=== PATIENT | female | born 1980 | race American Indian/Alaskan Native ===

== ENCOUNTER 2017-05-14 19:08 | Emergency (ER) | payer MEDICAID ==
[2017-05-15] MEDS ORDERED: TYLENOL PO ONE (00:25)
[2017-05-15 07:33] VITALS: BP 121/92
--- NOTE | 2017-05-15 08:28 | Emergency Department Report ---
ED General Adult HPI - General Chief complaint: Skin/Abscess/Foreign Body Stated complaint: TB SKIN TEST Time Seen by Provider: 05/15/17 07:30 Source: patient Mode of arrival: Ambulatory Limitations: No Limitations - History of Present Illness Initial comments: Patient is a 36-year-old female past medical history of TB as a child who presents with a positive PPD test on her left arm. Patient states that she got a PPD test on Wednesday after she left long-term. She was previously diagnosed with TB in the past and been successfully treated. Patient has had no new symptoms. She is complaining of left arm pain and is a 3 out of 10 nothing makes it better or worse. Patient denies any IV drug use or any history of HIV. Patient denies having any night sweats or any weight loss. Patient has had a dry cough going on but she states that her daughter has been sick. Patient has no nausea or vomiting. Severity scale (0 -10): 0 - Related Data Previous Rx's Medication Instructions Recorded Last Taken Type Acetaminophen/Codeine [Tylenol #3] 1 tab PO Q6H PRN #25 tab 12/07/14 Unknown Rx Ibuprofen [Motrin] 600 mg PO Q8H PRN #50 tablet 12/07/14 Unknown Rx Allergies Allergy/AdvReac Type Severity Reaction Status Date / Time No Known Allergies Allergy Verified 04/15/14 12:41 ED Review of Systems ROS: Stated complaint: TB SKIN TEST Other details as noted in HPI Constitutional: denies: chills, fever Eyes: denies: eye pain, eye discharge, vision change ENT: denies: ear pain, throat pain Respiratory: cough. denies: shortness of breath, wheezing Cardiovascular: denies: chest pain, palpitations Endocrine: no symptoms reported Gastrointestinal: denies: abdominal pain, nausea, diarrhea Genitourinary: denies: urgency, dysuria, discharge Musculoskeletal: denies: back pain, joint swelling, arthralgia Skin: rash. denies: lesions Neurological: denies: headache, weakness, paresthesias Psychiatric: denies: anxiety, depression Hematological/Lymphatic: denies: easy bleeding, easy bruising ED Past Medical Hx - Past Medical History Previous Medical History?: Yes Hx Hypertension: Yes Additional medical history: TB - Surgical History Past Surgical History?: Yes Additional Surgical History: - Social History Smoking Status: Never Smoker Substance Use Type: None - Medications Home Medications: Home Medications Medication Instructions Recorded Confirmed Last Taken Type Acetaminophen/Codeine [Tylenol #3] 1 tab PO Q6H PRN #25 tab 12/07/14 Unknown Rx Ibuprofen [Motrin] 600 mg PO Q8H PRN #50 tablet 12/07/14 Unknown Rx ED Physical Exam - General Limitations: No Limitations General appearance: alert, in no apparent distress - Head Head exam: Present: atraumatic, normocephalic - Eye Eye exam: Present: normal appearance - ENT ENT exam: Present: mucous membranes moist - Neck Neck exam: Present: normal inspection - Respiratory Respiratory exam: Present: normal lung sounds bilaterally. Absent: respiratory distress - Cardiovascular Cardiovascular Exam: Present: regular rate, normal rhythm. Absent: systolic murmur, diastolic murmur, rubs, gallop - GI/Abdominal GI/Abdominal exam: Present: soft, normal bowel sounds - Extremities Exam Extremities exam: Present: other (10 mm of induration on left arm with surrounding erythema consistent with positive PPD) - Back Exam Back exam: Present: normal inspection - Neurological Exam Neurological exam: Present: alert, oriented X3 - Psychiatric Psychiatric exam: Present: normal affect, normal mood - Skin Skin exam: Present: warm, dry, intact, normal color. Absent: rash ED Course Vital Signs 05/14/17 05/15/17 05/15/17 21:25 00:24 06:06 Temperature 99.0 F 100.8 F H 98.2 F Pulse Rate 122 H 118 H 104 H Respiratory 20 18 22 Rate Blood Pressure 168/105 130/87 Blood Pressure 141/92 [Left] O2 Sat by Pulse 100 99 97 Oximetry 05/15/17 05/15/17 07:32 07:56 Temperature 98.2 F Pulse Rate 97 H Respiratory 16 16 Rate Blood Pressure Blood Pressure 121/92 [Left] O2 Sat by Pulse 100 99 Oximetry ED Medical Decision Making - Radiology Data Radiology results: image reviewed Chest x-ray: Shows no acute cardiopulmonary disease - Medical Decision Making Chief medical diagnosis: Positive PPD secondary to history of tuberculosis Differential medical diagnosis: latent TB infection, viral syndrome We'll get chest x-ray and I'll measure PPD Patient most likely has positive PPD test due to history of being treated with TB in the past. Pt just got the TB test for the first time after she left long-term. She has no symptoms and a negative chest xray I will send the patient home as it is highly unlikely patient has active or latent TB additional verbal discharge instructions were given to the patient. Critical care attestation.: If time is entered above; I have spent that time in minutes in the direct care of this critically ill patient, excluding procedure time. ED Disposition Clinical Impression: History of tuberculosis exposure, PPD positive Disposition: DC-01 TO HOME OR SELFCARE Is pt being admited?: No Does the pt Need Aspirin: No Condition: Stable Instructions: Tuberculin Skin Test (ED) Referrals: COCO ALCANTAR MD [Primary Care Provider] - 3-5 Days RODRIGO HOYOS MD [Staff Physician] - 3-5 Days
--- NOTE | 2017-05-15 10:12 | XRay Report ---
XRAY CHEST TWO VIEWS: 05/14/17 22:11 CLINICAL: Cough. COMPARISON: None FINDINGS: Normal heart and pulmonary vasculature. The lungs are normally expanded and clear.The bones and soft tissues are unremarkable. IMPRESSION: Normal chest.No pneumonia.
== END 2017-05-15 09:09 | disposition home or self-care (01) ==
LOC: ED 19:08
DX: R76.11 Nonspecific reaction to tuberculin skin test without active tuberculosis (principal); I10 Essential (primary) hypertension; Z86.11 Personal history of tuberculosis
CPT/HCPCS: 71020